=== PATIENT | male | born 1950 | race Caucasian/White ===

== ENCOUNTER → 2023-08-30 | Outpatient (CLI) | payer MEDICARE, OTHER | END | disposition home or self-care (01) | LOC: RESCLI 10:26 | PROVIDERS: ATTEND Internal Medicine | DX: I48.91 Unspecified atrial fibrillation (principal); I48.0 Paroxysmal atrial fibrillation; E78.5 Hyperlipidemia, unspecified; E78.00 Pure hypercholesterolemia, unspecified; J30.2 Other seasonal allergic rhinitis; Z79.899 Other long term (current) drug therapy ==